=== PATIENT | female | born 1975 | race Two or more races ===

== ENCOUNTER 2024-10-18 11:26 | Emergency (ER) | payer OTHER ==
[~2024-10-18] VITALS: Ht 165.1 cm; Wt 78.5 kg
[2024-10-18] MEDS ORDERED: KETOROLAC TROMETHAMINE 60 MG VIAL IM ONE (13:14)
[2024-10-18] MEDS ORDERED: ORPHENADRINE CITRATE 30 MG/ML AMPUL ONE (13:14)
[2024-10-18] MEDS ORDERED: ORPHENADRINE CITRATE 30 MG/ML AMPUL IM ONE (13:15)
[2024-10-18] MEDS ORDERED: KETOROLAC TROMETHAMINE 30 MG VIAL IM ONE (13:15)
[2024-10-18 13:49] LABS: HEMATOCRIT 40.5 % (36.0-45.00); HEMOGLOBIN 13.7 g/dL (12.0-15.00); MEAN CORPUSCULAR HEMOGLOBIN 29.4 pg (27.00-32.0); MEAN CORPUSCULAR HGB CONC 33.8 g/dl (32.0-36.0); PLATELET COUNT 298 K/uL (150-450); RED BLOOD COUNT 4.65 M/uL (4.00-6.00); RED CELL DISTRIBUTION WIDTH 14.2 % (11.5-14.5)
[2024-10-18 14:19] LABS: CALCIUM 9.4 mg/dL (8.5-10.1); CREATININE SERUM 0.72 mg/dL (0.55-1.02); GFR 86.45; POTASSIUM 3.72 mEq/L (3.5-5.1)
== END 2024-10-18 15:24 | disposition home or self-care (01) ==
LOC: ER 11:29
PROVIDERS: General Practice
DX: M54.89 Other dorsalgia (principal); T50.8X5A Adverse effect of diagnostic agents, initial encounter; Y92.89 Other specified places as the place of occurrence of the external cause; Z91.011 Allergy to milk products; Z88.0 Allergy status to penicillin; Z88.8 Allergy status to other drugs, medicaments and biological substances

== ENCOUNTER → 2025-01-18 | Emergency (ER) | payer OTHER ==
[~2025-01-18] VITALS: Ht 165.1 cm; Wt 76.2 kg
[~2025-01-18] MED LIST: METOPROLOL SUCC25 MG PO; TRAMADOL HCL 50 MG TABLET PO STA
== END | disposition home or self-care (01) ==
LOC: ER 20:31
DX: S93.402A Sprain of unspecified ligament of left ankle, initial encounter (principal); X58.XXXA Exposure to other specified factors, initial encounter; Y93.89 Activity, other specified; Y92.89 Other specified places as the place of occurrence of the external cause; Y99.9 Unspecified external cause status; Z88.0 Allergy status to penicillin; Z88.8 Allergy status to other drugs, medicaments and biological substances; Z91.011 Allergy to milk products

== ENCOUNTER → 2025-02-05 | Emergency (ER) | payer OTHER ==
[~2025-02-05] VITALS: Ht 165.1 cm; Wt 74.8 kg
[~2025-02-05] MED LIST changes: -TRAMADOL HCL 50 MG TABLET PO STA
== END | disposition left against medical advice (07) ==
LOC: ER 21:14
DX: Z53.21 Procedure and treatment not carried out due to patient leaving prior to being seen by health care provider (principal)

== ENCOUNTER 2025-09-27 04:33 | Emergency (ER) | payer OTHER ==
[~2025-09-27] VITALS: Ht 165.1 cm; Wt 66.7 kg
[2025-09-27] MEDS ORDERED: FAMOTIDINE/PF 20 MG/2 ML VIAL IV STA (05:38)
[2025-09-27] MEDS ORDERED: MORPHINE SULFATE 4 MG/ML VIAL IV STA (05:39)
[2025-09-27] MEDS ORDERED: ASPIRIN 81 MG TAB.CHEW PO STA (05:40)
[2025-09-27] MEDS ORDERED: FAMOTIDINE/PF 20 MG/2 ML VIAL ONE (05:50)
[2025-09-27 07:45] LABS: BASO % 0.3 % (0.1-1.2); EOS # 0.01 (0.04-0.54); EOS % 0.2 % (0.7-7.0); LYMPH # 1.02 (1.18-3.74); LYMPH % 16.4 % (19.3-53.1); MEAN PLATELET VOLUME 11.60 fl (9.4-12.4); MONO # 0.37 (0.24-0.82); MONO % 5.9 % (4.7-12.5); NEUT # 4.79 (1.56-6.13); NEUT % 76.9 % (34.0-71.1); RED CELL DISTRIBUTION WIDTH 12.7 % (11.6-14.4)
[2025-09-27 08:09] LABS: BUN CREA RATIO 15.0 (7.0-25.0); CREATININE SERUM 0.62 mg/dL (0.55-1.02); GFR 102.31; GLUCOSE FASTING 100.0 mg/dL (65-100); OSMOLALITY SERUM 278.0 MOSM/KG (275-295)
[2025-09-27] MEDS ORDERED: POTASSIUM BICARBONATE/CIT AC 25 MEQ TABLET.EFF PO STA (08:25)
[2025-09-27 09:30] LABS: URINE APPEARANCE Clear; URINE BILIRRUBIN Negative (NEGATIVE); URINE BLOOD Moderate; URINE COLOR Yellow; URINE GLUCOSE Negative (NEGATIVE); URINE LEUKOCYTE Negative; URINE NITRATE Negative; URINE PROTEIN Negative (NEGATIVE); URINE UROBILINOGEN 0.2 E.U./dl
[2025-09-27 09:35] LABS: URINE BACTERIA 335.1 uL (0.0-1933); URINE EPITHELIAL CELLS 42.4 uL (0.0-38.8); URINE RBC 38.8 uL (0.0-20.8); URINE WBC 11.1 uL (0.0-23.2)
[2025-09-27 09:50] LABS: URINE CAST 0.14 uL (0.0-1.40); URINE KETONE 80 (NEGATIVE)
[2025-09-27] MEDS ORDERED: HYDROXYZINE HCL25 MG PO (11:23)
== END 2025-09-27 12:02 | disposition home or self-care (01) ==
LOC: ER 04:33
PROVIDERS: General Practice
DX: F41.8 Other specified anxiety disorders (principal); R07.89 Other chest pain; I10 Essential (primary) hypertension; R11.0 Nausea; Z88.0 Allergy status to penicillin; Z91.0110 Allergy to milk products, unspecified